=== PATIENT | female | born 1970 | race Caucasian/White ===

== ENCOUNTER 2022-01-02 12:27 | Inpatient (IN) ==
[2022-01-02] MEDS ORDERED: 0.9 % Sodium Chloride 1,000 ML IVC ONE (14:30)
[2022-01-02] MEDS ORDERED: Ondansetron 4 MG/2 ML VIAL IVP ONE (14:30)
[2022-01-02 15:34] LABS: Basophils # 0.1 K/mcL (0.0-0.2); Basophils % 0.9 %; Eosinophils % 0.3 %; Hematocrit 41.8 % (35.3-44.9); Immature Granulocytes % 0.4 % (0-4); Lymphocytes # 2.1 K/mcL (0.6-4.6); Lymphocytes % 21.6 %; Mean Corpuscular HGB Conc 33.5 g/dL (31.6-35.5); Mean Corpuscular Hemoglobin 28.9 pg (28.0-33.3); Mean Corpuscular Volume 86.4 fL (83.0-100.0); Mean Platelet Volume 10.5 fL (9.4-12.4); Monocytes # 1.3 K/mcL (0.0-1.3); Monocytes % 13.7 %; Neutrophils # 6.1 K/mcL (1.6-8.9); Platelet Count 458 K/mcL (140-400); Red Blood Count 4.84 M/mcL (3.82-4.97); Red Cell Distribution Width 13.2 % (11.5-14.5); Segmented Neutrophils % 63.1 %; White Blood Count 9.7 K/mcL (4.3-11.1)
[2022-01-02 16:17] LABS: Influenza A PCR Negative (Negative); Influenza B PCR Negative (Negative); Resp. Syncytial Virus PCR Negative (Negative)
[2022-01-02 16:19] LABS: SARS-CoV-2 by PCR (In House) Positive (Negative)
[2022-01-02 18:20] LABS: Alanine Aminotransferase 15 Units/L (7-52); Albumin/Globulin Ratio 1.3 (1.1-2.2); Alkaline Phosphatase 60 Units/L (34-104); Aspartate Amino Transferase 22 Units/L (13-39); BUN/Creatinine Ratio 37 (6-26); Bilirubin,Total 0.4 mg/dL (0.3-1.0); Blood Urea Nitrogen 21 mg/dL (6-20); Calcium 8.5 mg/dL (8.6-10.3); Carbamazepine (Tegretol) 5 mcg/mL (4-12); Carbon Dioxide 23 mEq/L (23-29); Chloride 116 mEq/L (98-107); Globulin 3.1 g/dL (2.4-3.5); Glucose 89 mg/dL (70-105); Lipase 27 Units/L (11-82); Osmolality,Calculated 306 (280-300); Potassium 3.5 mEq/L (3.5-5.1); Sodium 147 mEq/L (136-145); Total Protein 7.1 g/dL (6.4-8.9)
[2022-01-02] MEDS ORDERED: Naloxone 0.4 MG/ML INJ IVP PRN (20:49)
[2022-01-02] MEDS ORDERED: Ondansetron ODT 4 MG TAB.RAPDIS SL PRN (20:54)
[2022-01-02] MEDS ORDERED: 0.9 % Sodium Chloride 1,000 ML IVC SCH (21:00)
[2022-01-03 04:17] LABS: BUN/Creatinine Ratio 27 (6-26); Blood Urea Nitrogen 15 mg/dL (6-20); Calcium 8.8 mg/dL (8.6-10.3); Carbon Dioxide 21 mEq/L (23-29); Chloride 116 mEq/L (98-107); Glucose 93 mg/dL (70-105); Magnesium 1.8 mg/dL (1.6-2.6); Osmolality,Calculated 305 (280-300); Phosphorous 3.1 mg/dL (2.7-4.5); Potassium 3.3 mEq/L (3.5-5.1); Sodium 147 mEq/L (136-145)
[2022-01-03] MEDS: NORETHINDRONE ETHINYL ESTRAD PO SCH (07:50)
[2022-01-03 09:04] LABS: Hematocrit 40.6 % (35.3-44.9); Hemoglobin 13.3 g/dL (11.5-15.4); Mean Corpuscular HGB Conc 32.8 g/dL (31.6-35.5); Mean Corpuscular Hemoglobin 28.9 pg (28.0-33.3); Mean Corpuscular Volume 88.1 fL (83.0-100.0); Mean Platelet Volume 10.4 fL (9.4-12.4); Platelet Count 454 K/mcL (140-400); Red Blood Count 4.61 M/mcL (3.82-4.97); Red Cell Distribution Width 13.2 % (11.5-14.5); White Blood Count 9.2 K/mcL (4.3-11.1)
[2022-01-03] MEDS: D5% in Water 1,000 ML IVC SCH (17:39)
[2022-01-03] MEDS: diazePAM 2 MG TABLET PO SCH (20:34)
[2022-01-03] MEDS: carBAMazepine 200 MG TABLET PO SCH (20:34)
[2022-01-04] MEDS: NORETHINDRONE ETHINYL ESTRAD PO SCH (05:50)
[2022-01-04] MEDS: D5% in Water 1,000 ML IVC SCH (06:03)
[2022-01-04] MEDS ORDERED: Ondansetron 4 MG/2 ML VIAL IVP PRN (09:40)
[2022-01-04] MEDS: carBAMazepine 200 MG TABLET PO SCH ×2 (10:26→20:39)
[2022-01-04 14:43] LABS: Basophils # 0.1 K/mcL (0.0-0.2); Basophils % 0.9 %; Eosinophils # 0.1 K/mcL (0.0-0.6); Eosinophils % 1.1 %; Hematocrit 42.4 % (35.3-44.9); Hemoglobin 14.1 g/dL (11.5-15.4); Immature Granulocytes % 0.5 % (0-4); Lymphocytes # 2.4 K/mcL (0.6-4.6); Lymphocytes % 19.8 %; Mean Corpuscular HGB Conc 33.3 g/dL (31.6-35.5); Mean Corpuscular Hemoglobin 28.5 pg (28.0-33.3); Mean Corpuscular Volume 85.7 fL (83.0-100.0); Mean Platelet Volume 9.7 fL (9.4-12.4); Monocytes # 1.5 K/mcL (0.0-1.3); Neutrophils # 8.1 K/mcL (1.6-8.9); Platelet Count 462 K/mcL (140-400); Red Blood Count 4.95 M/mcL (3.82-4.97); Red Cell Distribution Width 12.9 % (11.5-14.5); Segmented Neutrophils % 65.7 %; White Blood Count 12.3 K/mcL (4.3-11.1)
[2022-01-04 15:32] LABS: BUN/Creatinine Ratio 17 (6-26); Blood Urea Nitrogen 12 mg/dL (6-20); Calcium 8.7 mg/dL (8.6-10.3); Carbon Dioxide 20 mEq/L (23-29); Chloride 107 mEq/L (98-107); Glucose 108 mg/dL (70-105); Osmolality,Calculated 284 (280-300); Sodium 137 mEq/L (136-145)
[2022-01-04] MEDS: diazePAM 2 MG TABLET PO SCH (17:31)
[2022-01-05] MEDS: NORETHINDRONE ETHINYL ESTRAD PO SCH (09:33)
[2022-01-05] MEDS: carBAMazepine 200 MG TABLET PO SCH ×2 (09:34→21:00)
[2022-01-05] MEDS: Potassium Chloride Elixir 20 MEQ/15 ML UDC PO SCH ×2 (14:40→17:54)
[2022-01-05] MEDS: diazePAM 2 MG TABLET PO SCH ×2 (18:27→21:01)
[2022-01-06] MEDS: NORETHINDRONE ETHINYL ESTRAD PO SCH (09:34)
[2022-01-06] MEDS: carBAMazepine 200 MG TABLET PO SCH ×2 (09:34→20:47)
[2022-01-06] MEDS: diazePAM 2 MG TABLET PO SCH (20:47)
[2022-01-07] MEDS: carBAMazepine 200 MG TABLET PO SCH ×2 (09:19→21:08)
[2022-01-07] MEDS: NORETHINDRONE ETHINYL ESTRAD PO SCH (09:20)
[2022-01-07 19:38] VITALS: BP 147/93; PULSE 88; TEMP 98.4; O2SAT 96
[2022-01-07] MEDS: diazePAM 2 MG TABLET PO SCH (21:08)
[2022-01-08] MEDS: NORETHINDRONE ETHINYL ESTRAD PO SCH (09:03)
[2022-01-08] MEDS: carBAMazepine 200 MG TABLET PO SCH (09:03)
== END 2022-01-08 18:10 | disposition home health service (06) | DRG 178 ==
LOC: EMEROOARM 12:27 → 3BNU 12:27 → SUATTDRO 22:03 → 3BNU 23:30 → SUATTDRO 01-03 18:01 → 3BNU 01-04 11:41
PROVIDERS: ADMIT Internal Medicine; ATTEND Registered Nurse